=== PATIENT | female | born 1995 | race Caucasian/White ===

== ENCOUNTER 2016-05-29 12:09 | Emergency (ER) | payer BC ==
[2016-05-29 13:05] VITALS: BP 124/58
--- NOTE | 2016-05-29 14:00 | UC ---
UC General HPI - HPI Summary HPI Summary: complaint of swelling over her left eyebrow that started 2 days ago started as a lump under eyebrow throbbing aching pain denies vision changes took some advil this morning with some relief denies fever and chills - History of Current Complaint Chief Complaint: [employer] Stated Complaint: SKIN COMPLAINT Time Seen by Provider: 05/29/16 13:52 Hx Obtained From: Patient - Allergy/Home Medications Allergies/Adverse Reactions: Allergies Allergy/AdvReac Type Severity Reaction Status Date / Time No Known Allergies Allergy Verified 05/29/16 13:05 Home Medications: Home Medications Ibuprofen TAB* [Advil TAB*] 400 mg PO DAILY PRN 05/29/16 [History Confirmed ] PMH/Surg Hx/FS Hx/Imm Hx Previously Healthy: Yes - Surgical History Surgical History: Yes Surgery Procedure, Year, and Place: Tonsillectomy, 2012 - Family History Known Family History: Positive: Respiratory Disease Negative: Cardiac Disease, Hypertension, Diabetes - Social History Occupation: Student Alcohol Use: Occasionally Substance Use Type: None Smoking Status (MU): Never Smoked Tobacco - Immunization History Most Recent Influenza Vaccination: Not the Season Review of Systems Constitutional: Negative Skin: Rash Eyes: Negative ENT: Negative Respiratory: Negative Cardiovascular: Negative Gastrointestinal: Negative Genitourinary: Negative Motor: Negative Neurovascular: Negative Musculoskeletal: Negative Neurological: Negative Psychological: Negative All Other Systems Reviewed And Are Negative: Yes Physical Exam Triage Information Reviewed: Yes Appearance: No Pain Distress, Well-Nourished Vital Signs: Initial Vital Signs Temp 98.5 F 05/29/16 12:59 Pulse 87 05/29/16 12:59 Resp 20 05/29/16 12:59 BP 124/58 05/29/16 12:59 Vital Signs Reviewed: Yes Eyes: Positive: Conjunctiva Clear, Other: - PERRL, EOMI ENT: Positive: Pharynx normal, TMs normal Neck: Positive: No Lymphadenopathy Respiratory: Positive: Lungs clear, Normal breath sounds, No respiratory distress Cardiovascular: Positive: RRR, No Murmur Abdomen Description: Positive: Nontender, Soft Bowel Sounds: Positive: Present Musculoskeletal Exam: Normal Neurological: Positive: Alert Psychological Exam: Normal Skin: Positive: Other - left eyebrow- edematous and erythema surrounding hair follicle- area of induration [id number] Course/Dx - Course Course Of Treatment: exam completed. will treat for follicultis, warm compresses BID area of induration too small for I&D at this time. - Differential Dx - Multi-Symptom Differential Diagnoses: Other - cellulitis, folliculitis, abscess Provider Diagnoses: folliculitis Discharge - Discharge Plan Condition: Stable Disposition: HOME Prescriptions: DOXYcycline CAP(*) [DOXYcycline 100MG CAP(*)] 100 mg PO BID #20 cap Patient Education Materials: Folliculitis (ED) Referrals: Non Staff,Doctor [Primary Care Provider] - Additional Instructions: Start antibiotic as directed Increase fluids and rest Take acetaminophen or ibuprofen for fever or pain Please review your discharge instructions. If your symptoms do not improve please call your primary care provider or return to urgent care
== END 2016-05-29 14:18 | disposition home or self-care (01) ==
LOC: UCCORT 12:09
DX: L73.9 Follicular disorder, unspecified (principal)
CPT/HCPCS: 99212; G0463